=== PATIENT | male | born 1985 | race Caucasian/White ===

== ENCOUNTER 2020-06-01 00:17 | Emergency (ER) | payer OTHER ==
[~2020-06-01] VITALS: Ht 177.8 cm; Wt 79.4 kg
== END 2020-06-01 15:48 | disposition home or self-care (01) ==
LOC: ER 00:17
DX: Z20.822 Contact with and (suspected) exposure to COVID-19 (principal); R53.83 Other fatigue; K29.60 Other gastritis without bleeding

== ENCOUNTER 2020-09-18 17:46 | Emergency (ER) | payer OTHER ==
[~2020-09-18] VITALS: Ht 177.8 cm; Wt 77.1 kg
[2020-09-18] MEDS ORDERED: BUTALB-ACETAMI1 EAC2 PO (21:09)
== END 2020-09-18 21:29 | disposition home or self-care (01) ==
LOC: ER 17:46
DX: G43.909 Migraine, unspecified, not intractable, without status migrainosus (principal)